=== PATIENT | female | born 1980 | race Caucasian/White ===

== ENCOUNTER 2017-07-22 22:03 | Emergency (ER) | payer MEDICAID, OTHER ==
[2017-07-22 22:16] VITALS: BP 112/74; PULSE 72; RESP 18; TEMP 98.1; O2SAT 99
[2017-07-22 22:52] LABS: BASO % 0.5 % (0.0-2.0); EOS # 0.1 K/uL (0.0-0.7); EOS % 1.2 % (0.0-4.0); HEMATOCRIT 33.8 % (34.0-47.0); LYMPH # 2.8 K/uL (1.0-4.3); LYMPH % 27.9 % (20.0-40.0); MEAN CORPUSCULAR HEMOGLOBIN 22.4 pg (27.0-31.0); MEAN CORPUSCULAR HGB CONC 30.7 g/dL (33.0-37.0); MEAN PLATELET VOLUME 9.1 fl (7.2-11.7); MONO # 0.9 K/uL (0.0-0.8); MONO % 8.7 % (0.0-10.0); NEUT # 6.2 K/uL (1.8-7.0); NEUT % 61.7 % (50.0-75.0); RED CELL DISTRIBUTION WIDTH 18.1 % (11.5-14.5)
[2017-07-22 23:01] LABS: BLOOD UREA NITROGEN 8 mg/dl (7-17); CALCIUM 9.2 mg/dL (8.4-10.2); CARBON DIOXIDE 27 mmol/L (22-30); CHLORIDE 105 mmol/L (98-107); GFR AFRICAN-AMERICAN > 60; GLUCOSE,RANDOM 94 mg/dL (65-105); POTASSIUM 4.4 MMOL/L (3.6-5.0); SODIUM 139 mmol/l (132-148)
--- NOTE | 2017-07-22 23:22 | ED PDOC ---
HPI: General Adult Time Seen by Provider: 07/22/17 22:17 Chief Complaint (Nursing): Anxiety Chief Complaint (Provider): Dizziness, headache and resolved chest pain History Per: Patient History/Exam Limitations: no limitations Onset/Duration Of Symptoms: Mins Have you had recent travel within the past 21 days to any of the following countries: [place], [place], [place] or [place]?: No Current Symptoms Are (Timing): Better Additional History Per: Patient Additional Complaint(s): The patient is a 37yo female, presents to the ED for evaluation of chest pain which has now resolved. Patient reports she was driving and felt a right sided chest pain which radiated to her left chest and is associated with dizziness and headache. Patient reports en route to ED, her chest pain resolved but the dizziness and headache is still present. Patient offers no additional medical complaints. Past Medical History Reviewed: Historical Data, Nursing Documentation, Vital Signs Vital Signs: Last Vital Signs Temp 98.1 F 07/22/17 22:14 Pulse 72 07/22/17 22:14 Resp 18 07/22/17 22:14 BP 112/74 07/22/17 22:14 Pulse Ox 99 07/23/17 00:27 - Medical History PMH: Anemia - Surgical History Surgical History: No Surg Hx - Family History Family History: States: Unknown Family Hx - Home Medications Home Medications: Ambulatory Orders Medication Instructions Recorded Ferrous Sulfate 1 tab PO DAILY 02/27/16 Nitrofurantoin Macrocrystals 1 cap PO BID #14 cap 02/27/16 [Macrobid] Naproxen [Naprosyn] 500 mg PO BID #30 tablet 07/23/17 - Allergies Allergies/Adverse Reactions: Allergies Allergy/AdvReac Type Severity Reaction Status Date / Time No Known Allergies Allergy Verified 02/27/16 14:37 Review of Systems ROS Statement: Except As Marked, All Systems Reviewed And Found Negative Cardiovascular: Positive for: Chest Pain (now resolved) Neurological: Positive for: Headache, Dizziness Physical Exam - Reviewed Nursing Documentation Reviewed: Yes Vital Signs Reviewed: Yes - Physical Exam Appears: Positive for: Well, Non-toxic, No Acute Distress Head Exam: Positive for: ATRAUMATIC, NORMAL INSPECTION, NORMOCEPHALIC Skin: Positive for: Normal Color, Warm, DRY Eye Exam: Positive for: EOMI, Normal appearance, PERRL Neck: Positive for: Normal, Supple Cardiovascular/Chest: Positive for: Regular Rate, Rhythm. Negative for: Murmur Respiratory: Positive for: Normal Breath Sounds. Negative for: Respiratory Distress Extremity: Positive for: Normal ROM. Negative for: Deformity, Swelling Neurologic/Psych: Positive for: Alert, Oriented. Negative for: Motor/Sensory Deficits - Laboratory Results Result Diagrams: 07/22/17 22:48 07/22/17 22:47 - ECG O2 Sat by Pulse Oximetry: 99 (RA) Pulse Ox Interpretation: Normal Medical Decision Making Medical Decision Making: Time: 2229 Impression: Non-cardiac chest pain and dizziness Plan: -- CXR -- Toradol 30 mg IM -- Reglan 10 mg PO Reassess time: 19 Chest x-ray as read by provider shows no acute disease. Patient reports feeling much better after taking the medications. Patient stable for discharge home, advised to follow up with PCP in 1-2 days. Scribe Attestation: Documented by Sandra Avalos acting as a scribe for Gilbert Varela MD. Provider Attestation: All medical record entries made by the Scribe were at my direction and personally dictated by me. I have reviewed the chart and agree that the record accurately reflects my personal performance of the history, physical exam, medical decision making, and the department course for this patient. I have also personally directed, reviewed, and agree with the discharge instructions and disposition. Disposition - Clinical Impression Clinical Impression: Dizziness, Headache - Disposition Referrals: Ivan Chaudhary MD [Family Provider] - Disposition: Routine/Home Disposition Time: 00:20 Condition: STABLE Prescriptions: Naproxen [Naprosyn] 500 mg PO BID #30 tablet Instructions: Acute Headache (ED), Noncardiac Chest Pain (ED) Forms: [facility] (Telugu) Print Language: BELGIAN
--- NOTE | 2017-07-23 08:55 | RAD ---
HISTORY: Chest pain COMPARISON: No prior. TECHNIQUE: Chest PA and lateral FINDINGS: LUNGS: The lungs are clear. PLEURA: No significant pleural effusion identified. No pneumothorax apparent. CARDIOVASCULAR: Normal. OSSEOUS STRUCTURES: No significant abnormalities. VISUALIZED UPPER ABDOMEN: Normal. OTHER FINDINGS: None. IMPRESSION: No active pulmonary disease.
== END 2017-07-23 00:31 | disposition home or self-care (01) ==
LOC: H.ER 22:03
DX: F41.9 Anxiety disorder, unspecified (principal)
CPT/HCPCS: 71020; 80048; 81025; 84484; 85025; 96374; 99283; J1885; J2765